=== PATIENT | male | born 1990 | race Caucasian/White ===

== ENCOUNTER 2018-09-16 03:29 | Emergency (ER) | payer BC ==
[2018-09-16 03:32] VITALS: BP 123/74
--- NOTE | 2018-09-16 03:43 | ER Report ---
History and Physical Time Seen By MD: 03:28 HPI/ROS CHIEF COMPLAINT: Forehead laceration HISTORY OF PRESENT ILLNESS: 28-year-old male fell on a stump while intoxicated. He sustained a 470 laceration to the left side of his forehead. Patient denies LOC or neck pain. Patient denies nausea or vomiting to suggest concussion. She states his tetanus status is up-to-date. Patient denies any other injuries. REVIEW OF SYSTEMS: Respiratory: No cough, no dyspnea. Cardiovascular: No chest pain, no palpitations. Gastrointestinal: No vomiting, no abdominal pain. Musculoskeletal: No back pain. Allergies: Coded Allergies: Penicillins (Verified Allergy, Mild, 09/16/18) Home Meds No Active Prescriptions or Reported Meds Reviewed Nurses Notes: Yes Old Medical Records Reviewed: Yes Hx Smoking: No Hx Substance Use Disorder: No Hx Alcohol Use: No Constitutional Vital Sign - Last 24 Hours 09/16/18 03:32 Temp 97.4 Pulse 69 Resp 12 B/P (MAP) 123/74 Pulse Ox 96 O2 Delivery Room Air Physical Exam Vital signs stable, afebrile, pulse ox normal General Appearance: The patient is alert, has no immediate need for airway protection and no current signs of toxicity. Mild distress, alert and oriented 3, palpation of the head and neck reveal no tenderness or trauma except for forehead laceration, approximate 4 cm in length across the left upper forehead transversely. HEENT: Pupils equal and round no injection. TMs normal, TMJs nontender, facial bones intact on palpation or is a tiny abrasion over the bridge of the nose. Respiratory: Chest is non tender, lungs are clear to auscultation. Cardiac: regular rate and rhythm Gastrointestinal: Abdomen is soft and non tender, no masses, bowel sounds normal. Musculoskeletal: Neck: Neck is supple and non tender. Extremities have full range of motion and are non tender. No evidence of trauma Skin: No rashes or lesions. DIFFERENTIAL DIAGNOSIS: After history and physical exam differential diagnosis was considered for head injury including but not limited to concussion, skull fracture, intraparenchymal contusion, subarachnoid, subdural and epidural hematoma. Forehead laceration, forehead contusion Medical Decision Making ED Course/Re-evaluation ED Course Patient was admitted to an examination room. H&P was done. The differential diagnoses was considered. On conical examination. Patient has a nonfocal neurologic examination. He has a laceration that was repaired as noted below. Procedure: Laceration repair. Verbal consent was obtained from the patient. The 4.0 cm laceration on the left upper forehead was anesthetized in the usual fashion. The wound was scrubbed, draped and explored to its base with a gloved finger. There were no deep structures involved. The wound was repaired with 5-0 Prolene 6 sutures. The wound repair was simple. The procedure was performed by myself. Wound care was discussed, suture removal will be in 5 days Decision to Disposition Date: Sep 16, 2018 Decision to Disposition Time: 03:41 Depart Departure Latest Vital Signs Vital Signs Date Time Temp Pulse Resp B/P (MAP) Pulse Ox O2 Delivery O2 Flow Rate FiO2 09/16/18 03:32 97.4 69 12 123/74 96 Room Air Impression: Primary Impression: Forehead laceration Additional Impression: Acute alcohol intoxication Condition: Improved Disposition: HOME OR SELF-CARE Referrals: EMMA FONG APRN (PCP) New Scripts No Active Prescriptions or Reported Meds Patient Instructions: Facial Laceration (ED) Additional Instructions: Perform daily wound care as described Have stitches removed in 5 days. Problem Qualifiers Primary Impression: Forehead laceration Encounter type: initial encounter Qualified Codes: S01.81XA - Laceration without foreign body of other part of head, initial encounter Additional Impression: Acute alcohol intoxication Complication of substance-induced condition: uncomplicated Qualified Codes: F10.920 - Alcohol use, unspecified with intoxication, uncomplicated DALI AMES DO Sep 16, 2018 03:43
== END 2018-09-16 04:02 | disposition home or self-care (01) ==
LOC: ER 03:35
DX: S01.81XA Laceration without foreign body of other part of head, initial encounter (principal); F10.920 Alcohol use, unspecified with intoxication, uncomplicated; W01.198A Fall on same level from slipping, tripping and stumbling with subsequent striking against other object, initial encounter
CPT/HCPCS: 99282